=== PATIENT | female | born 1970 | race Caucasian/White ===

== ENCOUNTER → 2016-03-26 | Outpatient (CLI) | payer OTHER ==
--- NOTE | 2016-03-26 18:07 | CT ---
EXAMINATION TYPE: CT abdomen pelvis w con DATE OF EXAM: 03/26/2016 5:16 PM COMPARISON: NONE HISTORY: Upper Abdomen pain. CT DLP: 1727 mGycm Automated exposure control for dose reduction was used. TECHNIQUE: Helical acquisition of images was performed from the lung bases through the pelvis. CONTRAST: Performed with Oral Contrast and with IV Contrast, patient injected with 100 mL of Omnipaque 300. FINDINGS: Lung bases are clear of consolidation. There is no pleural effusion. Heart size is normal. Liver spleen pancreas appear normal. There are numerous calcified gallstones. Bile ducts are not dila geraldo. There is no adrenal mass. Kidneys show satisfactory contrast opacification. There is no hydronep hrosis. There is no retroperitoneal adenopathy. There is no ascites. I see no intestinal wall thicken ing. There are no dilated loops. Appendix appears normal. Bladder distends smoothly. There is no sign of a pelvic mass. I see no bony destructive process. There is spondylosis at L5-S1. There is mild re lative spinal stenosis at L5-S1 due to posterior calcified disc herniation. IMPRESSION: SPONDYLOSIS AT L5-S1. NUMEROUS GALLSTONES. NO DILATED DUCTS. NO SIGN OF ACUTE ABDOMEN AND PELVIS.
== END | disposition home or self-care (01) ==
LOC: RADCTMAIN 16:35
PROVIDERS: ATTEND Surgery
DX: R10.9 Unspecified abdominal pain (principal)
CPT/HCPCS: 74177; Q9967

== ENCOUNTER 2016-04-25 12:35 | Inpatient (IN) | payer OTHER ==
[2016-04-25] MEDS ORDERED: HYDROmorphone 1 MG/ML 1 ML SYRINGE IVP STA (15:00)
[2016-04-25] MEDS ORDERED: ONDANSETRON 4 MG/2 ML VIAL IVP STA (15:00)
[2016-04-25] MEDS ORDERED: SODIUM CHLORIDE 0.9% 1,000 ML IV STA (15:00)
--- NOTE | 2016-04-25 15:02 | ED ---
General Adult HPI <Iain Sawyer - Last Filed: 04/25/16 16:57> - General Source: patient, RN notes reviewed Mode of arrival: ambulatory Limitations: no limitations <Valentin Galarza - Last Filed: 04/25/16 17:04> - General Chief complaint: Abdominal Pain Stated complaint: RT SIDE ABDOMINAL PAIN Time Seen by Provider: 04/25/16 14:51 - History of Present Illness Initial comments: Patient [age]-year-old female who presents emergency room today with chief complaint of increased right upper quadrant pain. Does admit that she is scheduled to have surgery 1 month gallbladder removed. He states that pain increased yesterday. States worse after she eats. States she's not been able to eat anything today. Patient currently rates pain 10/10 located in the right upper quadrant describes it as sharp dull and achy. Does admit to symptoms of nausea. Denies any other complaints or associated symptoms. Patient denies any recent fever, chills, shortness of breath, chest pain, back pain, numbness or tingling, dysuria or hematuria, constipation or diarrhea, headaches or visual changes, or any other complaints. (Valentin Galarza) - Related Data Home Medications Medication Instructions Recorded Confirmed Lisinopril [Prinivil] 5 mg PO DAILY 04/25/16 04/25/16 Allergies Allergy/AdvReac Type Severity Reaction Status Date / Time methylprednisolone AdvReac Severe Erythema Verified 04/25/16 14:47 [From Medrol] Review of Systems ROS Other: All systems not noted in ROS Statement are negative. <Iain Sawyer - Last Filed: 04/25/16 16:57> ROS Other: All systems not noted in ROS Statement are negative. <Valentin Galarza - Last Filed: 04/25/16 17:04> ROS Statement: Those systems with pertinent positive or pertinent negative responses have been documented in the HPI. Past Medical History Past Medical History: Hypertension History of Any Multi-Drug Resistant Organisms: None Reported Past Surgical History: Tubal Ligation Past Psychological History: No Psychological Hx Reported Smoking Status: Never smoker Past Alcohol Use History: None Reported Past Drug Use History: None Reported <Valentin Galarza - Last Filed: 04/25/16 17:04> General Exam <Iain Sawyer - Last Filed: 04/25/16 16:57> Limitations: no limitations <Valentin Galarza - Last Filed: 04/25/16 17:04> - General Exam Comments Initial Comments: General: The patient is awake and alert, in no distress, and does not appear acutely ill. Eye: Pupils are equal, round and reactive to light, extra-ocular movements are intact. No nystagmus. There is normal conjunctiva bilaterally. No signs of icterus. Ears, nose, mouth and throat: There are moist mucous membranes and no oral lesions. Neck: The neck is supple, there is no tenderness or JVD. Cardiovascular: There is a regular rate and rhythm. No murmur, rub or gallop is appreciated. Respiratory: Lungs are clear to auscultation, respirations are non-labored, breath sounds are equal. No wheezes, stridor, rales, or rhonchi. Gastrointestinal: Normal appearance them. Normal bowel sounds. Soft on palpation. Patient does have tenderness in the right upper quadrant. Mild tenderness epigastric. No rebound tenderness. No guarding. No CVA tenderness. Musculoskeletal: Normal ROM, no tenderness. Strength 5/5. Sensation intact. Pulses equal bilaterally 2+. Neurological: A&O x 3. CN II-XII intact, There are no obvious motor or sensory deficits. Coordination appears grossly intact. Speech is normal. Skin: Skin is warm and dry and no rashes or lesions are noted. Psychiatric: Cooperative, appropriate mood & affect, normal judgment. (Valentin Galarza) Medical Decision Making - Lab Data Result diagrams: 04/25/16 15:45 04/25/16 15:45 <Iain Sawyer - Last Filed: 04/25/16 16:57> - Lab Data Result diagrams: 04/25/16 15:45 04/25/16 15:45 <Valentin Galarza - Last Filed: 04/25/16 17:04> - Medical Decision Making The patient complaining of arrival quadrant pain. Ultrasound performed today showed gallbladder thickened wall with the gallbladder filled with stones. Positive Hughes sign. And a large common bile duct. The radiologist's final impression is thickened gallbladder wall with cholelithiasis and positive sonographic Hughes sign. Correlate for acute cholecystitis. As read by Dr. Rolando zafar. Patient is scheduled for cholecystectomy 1 month from today she reports eating anything causes pain. Pain is listed at 10 out of 10. The case discussed with Dr. lee on-call for Dr. Dr. Miner. Under the circumstances the patient will be admitted to his service, nothing by mouth after midnight, started on antibiotics and control of pain. Dr. Sawyer (Iain Sawyer) - Lab Data Lab Results 04/25/16 04/25/16 04/25/16 Range/Units 15:38 15:45 15:45 WBC 9.8 (3.8-10.6) k/uL RBC 4.79 (3.80-5.40) m/uL Hgb 13.2 (11.4-16.0) gm/dL Hct 39.4 (34.0-46.0) % MCV 82.2 (80.0-100.0) fL MCH 27.5 (25.0-35.0) pg MCHC 33.4 (31.0-37.0) g/dL RDW 12.6 (11.5-15.5) % Plt Count 344 (150-450) k/uL Neutrophils % 59 % Lymphocytes % 31 % Monocytes % 4 % Eosinophils % 2 % Basophils % 2 % Neutrophils # 5.8 (1.3-7.7) k/uL Lymphocytes # 3.0 (1.0-4.8) k/uL Monocytes # 0.4 (0-1.0) k/uL Eosinophils # 0.2 (0-0.7) k/uL Basophils # 0.2 (0-0.2) k/uL Sodium 141 (137-145) mmol/L Potassium 3.9 (3.5-5.1) mmol/L Chloride 103 (98-107) mmol/L Carbon Dioxide 26 (22-30) mmol/L Anion Gap 12 mmol/L BUN 15 (7-17) mg/dL Creatinine 0.73 (0.52-1.04) mg/dL Est GFR (MDRD) Af Amer >60 (>60 ml/min/1.73 sqM) Est GFR (MDRD) Non-Af >60 (>60 ml/min/1.73 sqM) Glucose 86 (74-99) mg/dL Calcium 9.9 (8.4-10.2) mg/dL Total Bilirubin 0.8 (0.2-1.3) mg/dL AST 18 (14-36) U/L ALT 24 (9-52) U/L Alkaline Phosphatase 108 (38-126) U/L Total Protein 8.3 H (6.3-8.2) g/dL Albumin 4.4 (3.5-5.0) g/dL Amylase 45 (30-110) U/L Lipase 89 (23-300) U/L Urine Color Yellow Urine Appearance Cloudy H (Clear) Urine pH 5.0 (5.0-8.0) Ur Specific Volcano 1.018 (1.001-1.035) Urine Protein Trace H (Negative) Urine Glucose (UA) Negative (Negative) Urine Ketones Negative (Negative) Urine Blood Negative (Negative) Urine Nitrate Negative (Negative) Urine Bilirubin Negative (Negative) Urine Urobilinogen <2.0 (<2.0) mg/dL Ur Leukocyte Esterase Large H (Negative) Urine RBC 13 H (0-5) /hpf Urine WBC 19 H (0-5) /hpf Ur Squamous Epith Cells 21 H (0-4) /hpf Urine Bacteria Many H (None) /hpf Urine Mucus Occasional H (None) /hpf Disposition <Iain Sawyer - Last Filed: 04/25/16 16:57> Time of Disposition: 17:04 <Valentin Galarza - Last Filed: 04/25/16 17:04> Clinical Impression: Acute cholecystitis Disposition: ADMITTED IP TO THIS HOSP Condition: Good
[2016-04-25] MEDS: SODIUM CHLORIDE 0.9% 1,000 ML IV STA ×2 (15:52→20:03)
[2016-04-25 15:54] LABS: Appearance,Urine Cloudy (Clear); Bacteria,Urine Many /hpf; Bilirubin,Urine Negative (Negative); Glucose,Urine (UA) Negative (Negative); Ketones,Urine Negative (Negative); Leukocyte Esterase,Urine Large (Negative); Mucus,Urine Occasional /hpf; Nitrite,Urine Negative (Negative); Particle Count 27736; Protein,Urine Trace (Negative); RBC,Urine 13 /hpf (0-5); Specific Gravity,Urine 1.018 (1.001-1.035); Squamous Epithelial Cell,Urine 21 /hpf (0-4); UA Billing (MACRO vs. MICRO) MICRO; Urobilinogen,Urine <2.0 mg/dL (<2.0); WBC,Urine 19 /hpf (0-5)
[2016-04-25 16:02] LABS: Basophils # (A) 0.2 k/uL (0-0.2); Basophils % (A) 2 %; CH 27.2; CHCM 33.2; Eosinophils # (A) 0.2 k/uL (0-0.7); Eosinophils % (A) 2 %; HCT 39.4 % (34.0-46.0); HDW 2.45; HGB 13.2 gm/dL (11.4-16.0); Luc # (Auto) 0.26; Luc % (Auto) 3; Lymphocytes % (A) 31 %; MCH 27.5 pg (25.0-35.0); MCHC 33.4 g/dL (31.0-37.0); MCV 82.2 fL (80.0-100.0); Mean Platelet Volume 7.6; Monocytes # (A) 0.4 k/uL (0-1.0); Monocytes % (A) 4 %; Neutrophils # (A) 5.8 k/uL (1.3-7.7); Neutrophils % (A) 59 %; RBC 4.79 m/uL (3.80-5.40); RDW 12.6 % (11.5-15.5); WBC 9.8 k/uL (3.8-10.6); WBC (Perox) 9.49
[2016-04-25 16:20] LABS: ALT 24 U/L (9-52); AST 18 U/L (14-36); Alkaline Phosphatase 108 U/L (38-126); Amylase 45 U/L (30-110); Anion Gap 12 mmol/L; Blood Urea Nitrogen 15 mg/dL (7-17); Calcium 9.9 mg/dL (8.4-10.2); Carbon Dioxide 26 mmol/L (22-30); Chloride 103 mmol/L (98-107); Glucose 86 mg/dL (74-99); Non-African American GFR(MDRD) >60 (>60 ml/min/1.73 sqM); Potassium 3.9 mmol/L (3.5-5.1); Sodium 141 mmol/L (137-145); Total Bilirubin 0.8 mg/dL (0.2-1.3); Total Protein 8.3 g/dL (6.3-8.2)
--- NOTE | 2016-04-25 16:34 | US ---
EXAMINATION TYPE: US abdomen limited DATE OF EXAM: 04/25/2016 4:19 PM COMPARISON: NONE CLINICAL HISTORY: Pain. RUQ pain EXAM MEASUREMENTS: Liver Length: 16.5 cm Gallbladder Wall: 0.7 cm CBD: 0.7 cm Right Kidney: 10.9 x 4.7 x 5.3 cm TECHNOLOGIST IMPRESSION: Pancreas: visualized portions appear heterogeneous and echogenic Liver: appears wnl Gallbladder: filled with stones, thickened GB wall Evidence for sonographic Hughes's sign: yes CBD: Enlarged. Normal is less than 0.6 cm. Right Kidney: no evidence of hydronephrosis or mass IMPRESSION: 1. Thickened gallbladder wall with cholelithiasis and positive sonographic Hughes's sign. Correlate f or acute cholecystitis.
[2016-04-25] MEDS ORDERED: ONDANSETRON 4 MG/2 ML VIAL IVP PRN (17:01)
[2016-04-25] MEDS ORDERED: SODIUM CHLORIDE 0.9% 1,000 ML IV ONE (17:01)
[2016-04-25] MEDS ORDERED: NALOXONE 0.4 MG/ML 1 ML VIAL IV PRN (17:01)
[2016-04-25] MEDS ORDERED: ACETAMINOPHEN TAB 325 MG TAB PO PRN (17:01)
[2016-04-25] MEDS: HYDROmorphone 1 MG/ML 1 ML SYRINGE IV PRN (18:48)
[2016-04-25 19:39] VITALS: BMI 34.5
[2016-04-26] MEDS: HYDROmorphone 1 MG/ML 1 ML SYRINGE IV PRN ×4 (00:22→19:37)
[2016-04-26] MEDS: ONDANSETRON 4 MG/2 ML VIAL IVP PRN ×2 (02:49→07:08)
[2016-04-26 07:45] LABS: Basophils # (A) 0.1 k/uL (0-0.2); Basophils % (A) 1 %; CH 26.9; CHCM 31.3; Eosinophils # (A) 0.1 k/uL (0-0.7); Eosinophils % (A) 1 %; HCT 38.4 % (34.0-46.0); HDW 2.33; HGB 11.7 gm/dL (11.4-16.0); Luc # (Auto) 0.24; Luc % (Auto) 3; Lymphocytes # (A) 2.6 k/uL (1.0-4.8); Lymphocytes % (A) 34 %; MCH 26.3 pg (25.0-35.0); MCHC 30.5 g/dL (31.0-37.0); MCV 86.2 fL (80.0-100.0); Mean Platelet Volume 6.9; Monocytes # (A) 0.4 k/uL (0-1.0); Monocytes % (A) 5 %; Neutrophils # (A) 4.4 k/uL (1.3-7.7); Neutrophils % (A) 56 %; RBC 4.46 m/uL (3.80-5.40); RDW 12.6 % (11.5-15.5); WBC 7.9 k/uL (3.8-10.6); WBC (Perox) 8.54
--- NOTE | 2016-04-26 08:41 | P.GSHP ---
History of Present Illness H&P Date: 04/25/16 Chief Complaint: Right upper quadrant pain This is a 45-year-old female who presents to the emergency room with complaints of right upper quadrant pain. Patient underwent ultrasound and was found have evidence of cholelithiasis and thickened gallbladder wall. She is scheduled see Dr. Miner next month for laparoscopic cholecystectomy. - Constitutional Constitutional: Reports as per HPI Past Medical History Past Medical History: Hypertension History of Any Multi-Drug Resistant Organisms: None Reported Past Surgical History: Tubal Ligation Additional Past Surgical History / Comment(s): Darron 2009 Past Anesthesia/Blood Transfusion Reactions: Postoperative Nausea & Vomiting ( PONV) Additional Past Anesthesia/Blood Transfusion Reaction / Comment(s): "Hard time waking up from anesthesia" Past Psychological History: No Psychological Hx Reported Smoking Status: Never smoker Past Alcohol Use History: None Reported Past Drug Use History: None Reported - Past Family History Father Family Medical History: COPD Mother Additional Family Medical History / Comment(s): Cholecysitis. Medications and Allergies Home Medications Medication Instructions Recorded Confirmed Type Lisinopril [Prinivil] 5 mg PO DAILY 04/25/16 04/25/16 History Allergies Allergy/AdvReac Type Severity Reaction Status Date / Time methylprednisolone AdvReac Severe Erythema Verified 04/25/16 14:47 [From Medrol] Surgical - Exam Vital Signs Temp Pulse Resp BP Pulse Ox 98.4 F 80 18 139/77 98 04/25/16 13:20 04/25/16 13:20 04/25/16 13:20 04/25/16 13:20 04/25/16 13:20 - General well developed, no distress - Eyes PERRL - ENT normal pinna - Neck no masses - Respiratory normal expansion - Cardiovascular Rhythm: regular - Abdomen Mild right upper quadrant and epigastric tenderness Abdomen: soft Results - Labs 04/26/16 06:49 04/25/16 15:45 Abnormal Lab Results - Last 24 Hours (Table) 04/26/16 Range/Units 06:49 MCHC 30.5 L (31.0-37.0) g/dL - Imaging US - abdomen: report reviewed (Thickened gallbladder wall, cholelithiasis) Assessment and Plan Plan: Acute cholecystitis. We'll perform laparoscopic cholecystectomy.
[2016-04-26 09:17] LABS: ALT 25 U/L (9-52); AST 17 U/L (14-36); Alkaline Phosphatase 91 U/L (38-126); Anion Gap 9 mmol/L; Blood Urea Nitrogen 14 mg/dL (7-17); Carbon Dioxide 26 mmol/L (22-30); Chloride 105 mmol/L (98-107); Glucose 93 mg/dL (74-99); Non-African American GFR(MDRD) >60 (>60 ml/min/1.73 sqM); Potassium 4.3 mmol/L (3.5-5.1); Sodium 140 mmol/L (137-145); Total Bilirubin 0.7 mg/dL (0.2-1.3); Total Protein 7.2 g/dL (6.3-8.2)
[2016-04-26] MEDS ORDERED: ONDANSETRON 4 MG/2 ML VIAL IVP ONE ×2 (10:48→23:08)
[2016-04-26] MEDS ORDERED: HEPARIN SODIUM,PORCINE 5,000 UNIT/ML 1 ML VIAL SQ ONE (10:48)
[2016-04-26] MEDS ORDERED: SCOPOLAMINE 1.5MG/72HR PATCH TRANSDERM ONE ×2 (10:49→23:08)
[2016-04-26] MEDS ORDERED: MIDAZOLAM 2 MG/2 ML VIAL ONE (10:51)
[2016-04-26] MEDS ORDERED: GLYCOPYRROLATE 0.2 MG/ML 2 ML VIAL ONE (10:51)
[2016-04-26] MEDS ORDERED: PROPOFOL 10 MG/ML 20 ML VIAL IV ONE (10:51)
[2016-04-26] MEDS ORDERED: NEOSTIGMINE 1 MG/ML 10 ML VIAL ONE (10:51)
[2016-04-26] MEDS ORDERED: SUCCINYLCHOLINE CHLORIDE 100 MG/5 ML SYR IV ONE (10:51)
[2016-04-26] MEDS ORDERED: KETOROLAC 30 MG/ML 1 ML VIAL ONE (10:51)
[2016-04-26] MEDS ORDERED: fentaNYL (PF) 50 MCG/ML 2 ML AMP ONE (10:51)
[2016-04-26] MEDS ORDERED: ROCURONIUM BROMIDE 10 MG/ML 10 ML VIAL IV ONE (10:51)
[2016-04-26] MEDS ORDERED: LIDOCAINE 1% INJ 10MG/ML (20 ML MDV) ONE (10:51)
[2016-04-26] MEDS ORDERED: SODIUM CHLORIDE 0.9% 1,000 ML IV ONE (11:05)
[2016-04-26] MEDS ORDERED: SODIUM CHLORIDE 0.9% 50 ML with ceFAZolin 2,000 MG IV ONE ×2 (11:05)
[2016-04-26] MEDS ORDERED: LACTATED RINGERS 1,000 ML IV ONE ×2 (11:19→11:34)
[2016-04-26] MEDS ORDERED: BUPIVACAIN-EPI 0.25%-1:200,000 30 ML VIAL SQ ONE (11:27)
[2016-04-26] MEDS ORDERED: NALOXONE 0.4 MG/ML 1 ML VIAL IV PRN (11:34)
--- NOTE | 2016-04-26 11:34 | P.OP ---
Date of Procedure: 04/26/16 Preoperative Diagnosis: Cholecystitis Postoperative Diagnosis: Cholecystitis Procedure(s) Performed: Laparoscopic cholecystectomy Anesthesia: SEAN Surgeon: Yung Mckenzie Estimated Blood Loss (ml): 5 Pathology: other (Gallbladder) Condition: stable Disposition: PACU Operative Findings: Porcelain gallbladder Description of Procedure: The patient was placed on the operating table. The patient received a general endotracheal tube anesthesia. The patients abdomen was prepped and draped in the usual sterile fashion. Through an infraumbilical stab incision, the fascia of the anterior abdominal wall was grasped with a pair of Kochers and then the Veress needle was placed in the peritoneal cavity. Position of the Veress needle was confirmed with positive drop test. The abdomen was then insufflated. After adequate insufflation, the 10 mm trocar was placed in the peritoneal cavity. Following this the laparoscope was placed in the peritoneal cavity. The patient was placed in the head-up, right side up position and then a 5 mm trocar was placed in the right lateral and right subcostal position under direct visualization. A 8 mm trocar was placed in the epigastric position. The gallbladder was grasped in the fundus and infundibulum. Traction on the gallbladder was placed in the lateral and the cephalad positions. The gallbladder was quite inflamed and appeared to be porcelain. The triangle of Calot was visualized.. The cystic duct was bluntly dissected until the union of the cystic duct and common bile duct was seen. The cystic duct was then divided and sealed with the Harmonic scissors. A PDS Endoloop was then placed throughout the cystic duct stump. The cystic artery divided and sealed with the Harmonic scissors. The gallbladder was then removed from the liver bed using Harmonic scissors. The gallbladder was then extracted through the epigastric port site. Operative field was checked for any bleeding spots and Harmonic scissors was used to coagulate the liver bed. The abdomen was irrigated. The trocars were removed. The skin was closed using interrupted 3-0 Vicryl suture. Dermabond dressing were applied. The patient tolerated the procedure well.
[2016-04-26] MEDS ORDERED: HYDROmorphone 1 MG/ML 1 ML SYRINGE IVP ONE (11:56)
[2016-04-26] MEDS ORDERED: HYDROmorphone 2 MG/ML 1 ML SYRINGE IVP ONE (12:21)
[2016-04-26] MEDS: KETOROLAC 30 MG/ML 1 ML VIAL IVP SCH ×2 (15:08→17:39)
--- NOTE | 2016-04-26 22:06 | CONS ---
REASON FOR CONSULTATION: Recommendations regarding antihypertensive medications. Patient is a 45-year-old female, came in with right upper quadrant abdominal pain. Patient was diagnosed with cholecystitis, underwent cholecystectomy. I did not get a chance to review the operative report yet and patient apparently had cholelithiasis in the past. Patient is clinically doing well post surgery. Patient has not passed gas yet. Patient denied any fevers, chills. Patient denied any nausea, vomiting, abdominal pain. The patient's blood pressure has remained stable. ROS: All other systems were reviewed and were negative. PAST MEDICAL HISTORY: Hypertension, tubal ligation surgery in the past. SOCIAL HISTORY: Denied any smoking, alcohol or illicit drug abuse. FAMILY HISTORY: Father had COPD. Mother had cholecystitis in the past. PHYSICAL EXAMINATION: VITAL SIGNS: Temperature 98.5, pulse of 80, respiratory rate of 18, blood pressures 139/75, saturating at 98% on room air. GENERAL: The patient is alert and oriented x3, not in any acute distress. Well developed, well nourished. HEENT: Pupils are round and equally reacting to light. EOMI. No scleral icterus. No conjunctival pallor. Normocephalic, atraumatic. No pharyngeal erythema. No thyromegaly. CARDIOVASCULAR: S1 and S2 present. No murmurs, rubs, or gallops. PULMONARY: Chest is clear to auscultation, no wheezing or crackles. ABDOMEN: ( ). No rebound or rigidity. Bowel sounds are sluggish. MUSCULOSKELETAL: No joint swelling or deformity. EXTREMITIES: No cyanosis, clubbing, or pedal edema. NEUROLOGICAL: Gross neurological examination did not reveal any focal deficits. SKIN: No rashes. LABORATORY DATA: CBC, CMP essentially within normal limits. ASSESSMENT AND PLAN: 1. Hypertension. Will hold off antihypertensives. The patient is only on lisinopril. This will be held because of ( ) perioperative hypertension-related issues. 2. Status post cholecystectomy. Postoperative pain management as per [facility]. Deep venous thrombosis prophylaxis as per [facility]. Will watch for any complications post surgery. 3. Obesity. Counseling was provided regarding that. Thank you for letting me participate in this patient's care. Will continue to follow up with the patient on an as-needed basis. NEETU
[2016-04-26] MEDS ORDERED: MIDAZOLAM 2 MG/2 ML VIAL IV PRN (23:08)
[2016-04-26] MEDS ORDERED: DEXAMETHASONE SOD PHOSPHATE 10 MG/ML 1 ML VIAL IV ONE (23:08)
[2016-04-26] MEDS ORDERED: LACTATED RINGERS 1,000 ML IV SCH (23:08)
[2016-04-26] MEDS ORDERED: HYDROmorphone 1 MG/ML 1 ML SYRINGE IVP PRN (23:08)
[2016-04-26] MEDS ORDERED: LIDOCAINE 1% 20 ML VIAL (10MG/ML) FOR IV START INTRADERMA PRN (23:08)
[2016-04-27] MEDS: KETOROLAC 30 MG/ML 1 ML VIAL IVP SCH ×3 (00:44→11:03)
[2016-04-27 01:26] VITALS: TEMP 98.1
[2016-04-27] MEDS: HYDROmorphone 1 MG/ML 1 ML SYRINGE IV PRN (02:56)
[2016-04-27 07:02] VITALS: BP 126/61; PULSE 53; RESP 16
[2016-04-27] MEDS: HYDROcodone/APAP 5-325MG 1 EACH TAB PO PRN ×2 (07:08→12:28)
[2016-04-27 07:10] LABS: Basophils % (A) 1 %; CH 26.9; CHCM 31.8; Eosinophils # (A) 0.1 k/uL (0-0.7); Eosinophils % (A) 2 %; HCT 34.4 % (34.0-46.0); HDW 2.35; Luc # (Auto) 0.15; Luc % (Auto) 2; Lymphocytes # (A) 2.9 k/uL (1.0-4.8); Lymphocytes % (A) 38 %; MCH 27.2 pg (25.0-35.0); MCV 84.9 fL (80.0-100.0); Mean Platelet Volume 6.7; Monocytes # (A) 0.3 k/uL (0-1.0); Monocytes % (A) 4 %; Neutrophils # (A) 4.1 k/uL (1.3-7.7); Neutrophils % (A) 54 %; RBC 4.05 m/uL (3.80-5.40); RDW 12.8 % (11.5-15.5); WBC 7.6 k/uL (3.8-10.6); WBC (Perox) 8.12
[2016-04-27 07:27] LABS: ALT 24 U/L (9-52); AST 19 U/L (14-36); Alkaline Phosphatase 74 U/L (38-126); Anion Gap 8 mmol/L; Blood Urea Nitrogen 13 mg/dL (7-17); Calcium 8.9 mg/dL (8.4-10.2); Carbon Dioxide 26 mmol/L (22-30); Chloride 104 mmol/L (98-107); Glucose 88 mg/dL (74-99); Non-African American GFR(MDRD) >60 (>60 ml/min/1.73 sqM); Potassium 4.1 mmol/L (3.5-5.1); Sodium 138 mmol/L (137-145); Total Bilirubin 0.7 mg/dL (0.2-1.3); Total Protein 6.6 g/dL (6.3-8.2)
--- NOTE | 2016-04-27 10:25 | P.DS ---
Providers Date of admission: 04/25/16 18:02 Expected date of discharge: 04/27/16 Attending physician: uYng Mckenzie Consults: 04/26/16 11:34 Consult Physician Routine Consulting Provider: Anushka Gomez Consult Reason/Comments: Medical management Do you want consulting provider notified?: Yes Primary care physician: Lisseth Osuna Hospital Course: This a 45-year-old female who was admitted to the hospital with complaints of right upper quadrant pain. Patient's workup found have evidence of acute cholecystitis. Patient went laparoscopic cholecystectomy. Please see hospital chart for details. Procedures: Laparoscopic cholecystectomy Patient Condition at Discharge: Good Plan - Discharge Summary New Discharge Prescriptions: HYDROcodone/APAP 7.5-325MG [[place] 7.5] 1 each PO Q4H PRN #60 tab PRN Reason: Pain Discharge Medication List Lisinopril [Prinivil] 5 mg PO DAILY 04/25/16 [History] HYDROcodone/APAP 7.5-325MG [[place] 7.5] 1 each PO Q4H PRN #60 tab 04/27/16 [Rx] Follow up Appointment(s)/Referral(s): Lisseth Osuna MD [Primary Care Provider] - 1-2 days Yung Mckenzie MD [STAFF PHYSICIAN] - 1 Week Discharge Disposition: HOME SELF-CARE
--- NOTE | 2016-04-27 16:25 | PN ---
Patient is admitted for cholecystectomy. Patient post surgery her blood pressure remained very well at 120 systolic in spite of not being on any medications. Recommended to check the blood pressure twice a day, take it to her primary care doctor and at this point of time, I am recommending her to completely hold off on lisinopril until she sees her primary doctor and patient has asymptomatic bacteria which does not warrant any antibiotics. Discharge medication reconciliation was reviewed. REVIEW OF SYSTEMS: CARDIOVASCULAR: No chest pain, no orthopnea, no PND, no palpitations. PULMONARY: Denied any shortness of breath. No cough or hemoptysis. GASTROINTESTINAL: No diarrhea, nausea or vomiting. No abdominal pain. Normoactive bowel sounds. NEUROLOGIC: No headaches, no weakness, no numbness. Medications were reviewed. PHYSICAL EXAMINATION: VITAL SIGNS: Temperature 98.1, pulse of 63, respiratory rate of 16, blood pressure is 126/61, saturating at 94% on room air. GENERAL: The patient is alert and oriented x3, not in any acute distress. Well developed, well nourished. HEENT: Pupils are round and equally reacting to light. EOMI. No scleral icterus. No conjunctival pallor. Normocephalic, atraumatic. No pharyngeal erythema. No thyromegaly. CARDIOVASCULAR: S1 and S2 present. No murmurs, rubs, or gallops. PULMONARY: Chest is clear to auscultation, no wheezing or crackles. ABDOMEN: Soft, nontender, nondistended, normoactive bowel sounds. No palpable organomegaly. MUSCULOSKELETAL: No joint swelling or deformity. EXTREMITIES: No cyanosis, clubbing, or pedal edema. NEUROLOGICAL: Gross neurological examination did not reveal any focal deficits. SKIN: No rashes. FINAL DIAGNOSES: 1. Hypertension. 2. Asymptomatic bacteria. 3. Status post cholecystectomy. 4. Obesity. PLAN: As mentioned above in the interval history.
== END 2016-04-27 15:17 | disposition home or self-care (01) | DRG 419 ==
LOC: EC 12:35 → 3SUR 18:02
PROVIDERS: ADMIT Surgery; ATTEND Surgery
PROC: 0FT44ZZ Resection of Gallbladder, Percutaneous Endoscopic Approach (ICD-10-PCS; principal; 2016-04-26 10:45)
DX: K80.00 Calculus of gallbladder with acute cholecystitis without obstruction (principal); I10 Essential (primary) hypertension; E66.9 Obesity, unspecified; K82.8 Other specified diseases of gallbladder; Z68.34 Body mass index [BMI] 34.0-34.9, adult; Z79.899 Other long term (current) drug therapy; Z88.8 Allergy status to other drugs, medicaments and biological substances
CPT/HCPCS: 36415; 76705; 80053; 81001; 81025; 82150; 83690; 85025; 88304; 96361; 96374; 96375; 99285

== ENCOUNTER 2016-05-16 12:00 | Day surgery (SDC) | payer OTHER ==
[~2016-05-16 12:00] MED LIST: LACTATED RINGERS 1,000 ML IV SCH; LIDOCAINE 1% 20 ML VIAL (10MG/ML) FOR IV START INTRADERMA PRN
[2016-05-16 12:29] VITALS: RESP 16; TEMP 99
--- NOTE | 2016-05-16 13:28 | P.GSHP ---
History of Present Illness H&P Date: 05/16/16 Chief Complaint: Epigastric pain This a 45-year-old female who's had chronic issues with epigastric pain. Patient was originally thought to have a ventral hernia. Her recent CAT scan shows no evidence of ventral hernia. However she does have tenderness in the epigastric area. She presents today for EGD. - Constitutional Constitutional: Reports as per HPI Past Medical History Past Medical History: Hypertension History of Any Multi-Drug Resistant Organisms: None Reported Past Surgical History: Cholecystectomy, Tubal Ligation Additional Past Surgical History / Comment(s): Darron 2009 Past Anesthesia/Blood Transfusion Reactions: Postoperative Nausea & Vomiting ( PONV) Additional Past Anesthesia/Blood Transfusion Reaction / Comment(s): "Hard time waking up from anesthesia" Past Psychological History: No Psychological Hx Reported Smoking Status: Never smoker Past Alcohol Use History: None Reported Past Drug Use History: None Reported - Past Family History Father Family Medical History: COPD Mother Additional Family Medical History / Comment(s): Cholecysitis. Medications and Allergies Home Medications Medication Instructions Recorded Confirmed Type Lisinopril-Hctz 10-12.5 mg 1 tab PO DAILY 05/16/16 05/16/16 History [Zestoretic 10-12.5] Allergies Allergy/AdvReac Type Severity Reaction Status Date / Time methylprednisolone AdvReac Severe Erythema Verified 05/16/16 12:29 [From Medrol] Surgical - Exam Vital Signs Temp Pulse Resp BP Pulse Ox 99 F 94 16 146/85 98 05/16/16 12:27 05/16/16 12:27 05/16/16 12:27 05/16/16 12:27 05/16/16 12:27 - General well developed, no distress - Eyes PERRL - ENT normal pinna - Neck no masses - Respiratory normal expansion - Cardiovascular Rhythm: regular - Abdomen Mild epigastric tenderness Abdomen: soft Assessment and Plan Plan: Epigastric pain. We'll perform EGD.
[2016-05-16] MEDS ORDERED: PROPOFOL 10 MG/ML 20 ML VIAL IV ONE (14:41)
[2016-05-16] MEDS ORDERED: LIDOCAINE 1% INJ 10MG/ML (20 ML MDV) ONE (14:41)
[2016-05-16] MEDS ORDERED: HYDROmorphone 1 MG/ML 1 ML SYRINGE IVP ONE (15:40)
[2016-05-16 17:23] VITALS: BP 141/91; PULSE 72
--- NOTE | 2016-08-08 12:58 | P.OP ---
Date of Procedure: 05/16/16 Preoperative Diagnosis: Gastritis Postoperative Diagnosis: Gastritis Procedure(s) Performed: EGD Implants: Anesthesia: MAC Surgeon: Yung Mckenzie Pathology: other (Antrum) Condition: stable Disposition: PACU Indications for Procedure: Operative Findings: Description of Procedure: Patient's placed on the endoscopy table in the lateral position. She received IV sedation. The gastroscope some placed oropharynx passed in the esophagus and into the stomach. Scope was then placed through the pylorus. The first and second portion duodenum appeared normal. Scope summer back the antrum this was mildly inflamed. A biopsies was performed. The scope was then retroflexed remainder stomach appeared normal. There is no significant hiatal hernia. The distal esophagus was normal. The proximal esophagus appeared normal. Scope was withdrawn for patient.
== END 2016-05-16 17:55 | disposition home or self-care (01) ==
LOC: ORWHC2ENDO 12:00
PROVIDERS: ATTEND Surgery
DX: K29.50 Unspecified chronic gastritis without bleeding (principal); I10 Essential (primary) hypertension; Z79.899 Other long term (current) drug therapy; Z91.09 Other allergy status, other than to drugs and biological substances; R10.13 Epigastric pain
CPT/HCPCS: 81025; 88305; 88342; 43239; J2001; J1170; J2704

== ENCOUNTER → 2016-05-20 | Outpatient (CLI) | payer OTHER ==
--- NOTE | 2016-05-21 09:02 | CT ---
EXAMINATION TYPE: CT abdomen pelvis w con DATE OF EXAM: 05/20/2016 7:56 PM COMPARISON: Previous exam one March 2016 HISTORY: Upper Abdomen pain and occasional bulging marked by BB CT DLP: 1699.5 mGycm Automated exposure control for dose reduction was used. TECHNIQUE: Helical acquisition of images was performed from the lung bases through the pelvis. CONTRAST: Performed with Oral Contrast and with IV Contrast, patient injected with 100 mL of Omnipaque 300. FINDINGS: LUNG BASES: No significant abnormality is appreciated. LIVER/GB: Patient is post cholecystectomy. Liver shows a stable appearance PANCREAS: No significant abnormality is seen. SPLEEN: No significant abnormality is seen. ADRENALS: No significant abnormality is seen. KIDNEYS: Subcentimeter cortical cyst lower pole left kidney. RETROPERITONEAL ADENOPATHY: None visualized REPRODUCTIVE ORGANS: Similar to prior exam, there may be ovarian cysts. URINARY BLADDER: No significant abnormality is seen. PELVIC ADENOPATHY: None visualized. OSSEOUS STRUCTURES: Stable BOWEL: No significant abnormality is seen. OTHER: The area underlying the BB in the upper abdomen anteriorly does not show any underlying abnorm ality. There is a small umbilical hernia which contains fat. IMPRESSION: NO SIGNIFICANT INTERVAL CHANGE TO ACCOUNT FOR PATIENT'S SYMPTOMS. ADDITIONAL FINDINGS ABOVE. POST CHO LECYSTECTOMY.
== END | disposition home or self-care (01) ==
LOC: RADCTMAIN 18:56
PROVIDERS: ATTEND Surgery
DX: N28.1 Cyst of kidney, acquired (principal); Z90.49 Acquired absence of other specified parts of digestive tract
CPT/HCPCS: 74177; Q9967

== ENCOUNTER → 2021-10-25 | Outpatient (CLI) | payer MEDICAID ==
--- NOTE | 2021-10-26 08:59 | CT ---
EXAMINATION TYPE: CT abdomen pelvis w con CT DLP: 2097.3 mGycm, Automated exposure control for dose reduction was used. DATE OF EXAM: 10/25/2021 5:55 PM COMPARISON: CT abdomen pelvis most recent from 05/20/2016. CLINICAL INDICATION:Female, 51 years old with history of R10.84 GENERALIZED ABDOMINAL PAIN; hernia, p ain TECHNIQUE: Standard CT of the abdomen and pelvis following the administration of 100 cc of Isovue 3 00 IV contrast material. Coronal and sagittal reformats were performed. FINDINGS: LOWER CHEST: The lung bases are clear. Mild prominence to the heart. No pericardial effusion. ABDOMEN LIVER: Unremarkable GALLBLADDER AND BILE DUCTS: The gallbladder is surgically absent. No biliary duct dilatation. PANCREAS: Unremarkable. SPLEEN: Unremarkable. ADRENAL GLANDS: Right adrenal gland is unremarkable. Left adrenal gland nodule measuring up to 1.6 cm which is stable from prior examination in 2017 and considered benign. KIDNEYS AND URETERS: No evidence of hydronephrosis or renal calculus. The kidneys enhance symmetrical ly. Subcentimeter left inferior pole likely cysts. PELVIS BLADDER: Unremarkable REPRODUCTIVE: Unremarkable. ABDOMEN & PELVIS STOMACH AND BOWEL: Stomach and duodenum are unremarkable. No focal wall thickening or surrounding inf lammatory changes. The appendix is within normal limits. No evidence of bowel obstruction. PERITONEUM: No evidence of pneumoperitoneum or free fluid. VASCULATURE: No evidence of aortic aneurysm. MUSCULOSKELETAL: No acute osseous abnormalities. Degenerative disc disease with disc space narrowing, endplate sclerosis, vacuum disc disease, and anterior posterior osteophytosis at L5-S1. There is a l east mild spinal canal stenosis at L5-S1 due to posterior disc osteophyte complex. LYMPH NODES: No gross evidence for lymphadenopathy. SOFT TISSUE/ABDOMINAL WALL: No evidence of inguinal hernia. Stable tiny fat filled umbilical hernia. IMPRESSION: 1. No acute abdominal/pelvic process. 2. Stable tiny fat filled umbilical hernia. 3. Stable left adrenal gland nodule from 2017 and considered benign.
== END | disposition home or self-care (01) ==
LOC: RADCTMAIN 17:21
PROVIDERS: ATTEND Surgery
DX: R10.84 Generalized abdominal pain (principal); K42.9 Umbilical hernia without obstruction or gangrene
CPT/HCPCS: 74177; Q9967

== ENCOUNTER 2021-12-05 09:41 | Day surgery (SDC) | payer MEDICAID ==
[2021-12-04 08:30] VITALS: BMI 32.3
[~2021-12-05 09:41] MED LIST changes: +HEPARIN SODIUM,PORCINE/PF 5,000 UNIT/0.5 ML SYRINGE SQ PRN; +HYDROmorphone 0.5 MG/0.5 ML SYRINGE IVP PRN; -LIDOCAINE 1% 20 ML VIAL (10MG/ML) FOR IV START INTRADERMA PRN; +ONDANSETRON 4 MG/2 ML VIAL IVP ONE
[2021-12-05] MEDS ORDERED: LACTATED RINGERS 1,000 ML IV ONE ×2 (10:29→14:03)
[2021-12-05] MEDS ORDERED: ONDANSETRON 4 MG/2 ML VIAL IVP ONE (10:29)
[2021-12-05] MEDS ORDERED: MIDAZOLAM 2 MG/2 ML VIAL IVP ONE (10:44)
[2021-12-05] MEDS ORDERED: fentaNYL (PF) 50 MCG/ML 2 ML AMP IVP ONE (10:44)
[2021-12-05] MEDS ORDERED: LABETALOL SYRINGE 5 MG/ML IVP ONE (11:12)
[2021-12-05] MEDS ORDERED: MIDAZOLAM 2 MG/2 ML VIAL ONE (11:21)
[2021-12-05] MEDS ORDERED: GLYCOPYRROLATE 0.2 MG/ML 2 ML VIAL ONE (11:21)
[2021-12-05] MEDS ORDERED: ROPIVACAINE 5 MG/ML 30 ML VIAL ONE (11:21)
[2021-12-05] MEDS ORDERED: SUCCINYLCHOLINE CHLORIDE 200 MG/10 ML VIAL IV ONE (11:21)
[2021-12-05] MEDS ORDERED: NEOSTIGMINE 1 MG/ML 10 ML VIAL ONE (11:21)
[2021-12-05] MEDS ORDERED: METOPROLOL TARTRATE 5 MG/5 ML VIAL IVP ONE (11:21)
[2021-12-05] MEDS ORDERED: LIDOCAINE 2% INJ 20 MG/ML (2 ML VIAL) ONE (11:21)
[2021-12-05] MEDS ORDERED: ROCURONIUM 10 MG/ML (5 ML VIAL) IV ONE (11:21)
[2021-12-05] MEDS ORDERED: SODIUM CHLORIDE 0.9% (PF) 10 ML VIAL ONE (11:21)
[2021-12-05] MEDS ORDERED: KETOROLAC 15 MG/ML 1 ML VIAL ONE (11:21)
[2021-12-05] MEDS ORDERED: fentaNYL (PF) 50 MCG/ML 2 ML AMP ONE (11:21)
[2021-12-05] MEDS ORDERED: PROPOFOL 10 MG/ML 20 ML VIAL IV ONE (11:21)
--- NOTE | 2021-12-05 11:43 | P.ANPRN ---
Procedure Note - Anesthesia - Nerve Block Performed Bilateral Transversus Abdominis Single Time Out Performed: Yes (1043) Date of Procedure: 12/05/21 Procedure Start Time: 10:44 Procedure Stop Time: 10:51 Location of Patient: PreOp Indication: Acute Post-Operative Pain, Requested by Surgeon Specifically requested for management of pain by : Denae Hassan Sedation Type: Sedate with meaningful contact maintained Preparation: Sterile Prep Position: Supine Catheter: None Needle Types: Pajunk Needle Gauge: 21 Ultrasound used to visualize needle placement: Yes Ultrasound used to observe medication spread: Yes Injectate: 0.5% Ropivacaine (see comment for volume) (15cc + 10cc nacl pf each side) Blood Aspirated: No Pain Paresthesia on Injection Noted: No Resistance on Injection: Normal Image Stored and Saved: Yes Events: Uneventful and Well Tolerated
[2021-12-05] MEDS ORDERED: LIDOCAINE 1%-EPI 1:100,000 20 ML VIAL SQ ONE ×2 (11:48)
--- NOTE | 2021-12-05 12:34 | P.OP ---
Date of Procedure: 12/05/21 Preoperative Diagnosis: Umbilical Hernia Postoperative Diagnosis: Umbilical Hernia Procedure(s) Performed: Robotic Umbilical hernia repair with mesh Anesthesia: SEAN Surgeon: Denae Hassan Pathology: other (Abdominal wall biopsy) Condition: stable Disposition: same day Indications for Procedure: 51-year-old female presented to the surgery clinic with complaints of abdominal pain around her umbilicus. Further workup revealed umbilical hernia. Secondary to this, plan is for umbilical hernia repair with mesh. Risks, benefits and alternatives were provided to the patient. She did provide consent prior to attending the operating suite. Operative Findings: 2 x 2 centimeter umbilical hernia Abdominal wall lesion Description of Procedure: The patient was brought to the operating room and placed in supine position. Gen. anesthesia with endotracheal intubation was performed as per anesthesia team. The right arm was tucked against the body and the footboard was applied. She was prepped and draped in regular sterile fashion. A 5 mm skin incision was made along the left midaxillary line at [place] point and the abdomen was entered under direct visualization using a Visiport. Pneumoperitoneum was achieved. The umbilical hernia was clearly visualized. It was noted to contain preperitoneal fat. An additional 8 mm trocar was placed in the left lower abdomen and a 12 mm trocar was placed in left mid abdomen. The initial 5 mm trocar was upsized to an 8 mm trocar. The robot was undocked. The robotic instruments were inserted through the trochars. The hernia defect contained preperitoneal fat and was measured at approximately 2 x 2 centimeters. The fat was reduced using gentle traction and countertraction method. The falciform ligament was divided using monopolar scissors close to the anterior abdominal wall to create a landing zone for the mesh. A PLUMgrid system circular mesh, 11cm, he was rolled and introduced into the abdominal cavity via the 12 mm trocar. The hernia defect was then closed primarily with running sutures using 10V lock by taking one similar bite on the fashion either side of the defect. A Jeff-Samanta device was inserted through the middle of the hernia defect and the stay suture on the mesh was grasped to elevate the mesh against the anterior abdominal wall. The mesh was circumferentially sutured to the peritoneum of the anterior abdominal wall using 20V lock without any folds or kinks. The robot was then undocked. All trocar sites were examined. No evidence of bleeding. All sutures removed from the abdomen. An additional small lesion was noted in the right lower quadrant abdominal wall. A small biopsy was taken. The 12 mm trocar site was then closed using 2 trans-fascial sutures of 0 Vicryl which were placed using a Jeff-Samanta device. The pneumoperitoneum was evacuated and all the skin incisions were closed using 4-0 Monocryl followed by Dermabond skin glue. The sponge, instrument and needle count were correct 2. Abdominal binder was applied. The patient was activated and taken to postanesthesia care unit in stable condition.
[2021-12-05 12:51] VITALS: TEMP 97.2
[2021-12-05] MEDS ORDERED: ACETAMINOPHEN IV (For NPO) 1,000 MG/100 ML VIAL IVPB ONE (13:02)
[2021-12-05 14:11] VITALS: RESP 18
[2021-12-05] MEDS ORDERED: HYDROcodone/APAP 5-325MG 1 EACH TAB ONE (14:27)
[2021-12-05] MEDS ORDERED: HYDROcodone/APAP 5-325MG 1 EACH TAB PO ONE (14:29)
[2021-12-05 15:10] VITALS: BP 138/69; PULSE 102
== END 2021-12-05 15:27 | disposition home or self-care (01) ==
LOC: OR 09:41
PROVIDERS: ATTEND Surgery
DX: K42.9 Umbilical hernia without obstruction or gangrene (principal); G89.18 Other acute postprocedural pain; J45.909 Unspecified asthma, uncomplicated; I10 Essential (primary) hypertension; Z86.79 Personal history of other diseases of the circulatory system; Z90.49 Acquired absence of other specified parts of digestive tract; Z98.51 Tubal ligation status; Z83.3 Family history of diabetes mellitus
CPT/HCPCS: 64488; 88307; 49652; C1781; J2250; J0330; J2710; J0690; J2405; J3010; J2795; J0131; J1885; J2704; J1170; J1644; J2001

== ENCOUNTER → 2021-12-09 | Outpatient (CLI) | payer MEDICAID ==
--- NOTE | 2021-12-09 15:49 | US ---
EXAMINATION TYPE: US thyroid st tissue head/neck DATE OF EXAM: 12/09/2021 COMPARISON: NONE CLINICAL HISTORY: R22.1 LOCALIZED SWELLING, MASS AND LUMP, NECK. Patient state right neck palp x 3 we eks. Patient states toward the end of the day her voice gets hoarse. Area of concern scanned at palpable of lower right neck and right thyroid lobe was visualized. Left thyroid lobe scanned for comparison. Right lobe= 4.6 x 2.2 x 2.5 cm and left lobe = 3.9 x 1.9 x 2.5 cm. IMPRESSION: Diffusely heterogenous mildly prominent thyroid gland with the right lobe marginally larger than the left. Correlation with thyroid function tests recommended.
== END | disposition home or self-care (01) ==
LOC: RADUSWWP 15:23
PROVIDERS: ATTEND Internal Medicine
DX: R22.1 Localized swelling, mass and lump, neck (principal)
CPT/HCPCS: 76536

== ENCOUNTER → 2021-12-27 | Outpatient (CLI) | payer MEDICAID | END | disposition home or self-care (01) | LOC: LABWHC1 13:27 | PROVIDERS: ATTEND Otolaryngology | DX: E07.9 Disorder of thyroid, unspecified (principal) | CPT/HCPCS: 36415; 84439; 84443; 84481; 86376; 86800 ==

== ENCOUNTER → 2022-02-11 | Outpatient (CLI) | payer MEDICAID | END | disposition home or self-care (01) | LOC: LABWHC1 12:31 | PROVIDERS: ATTEND Internal Medicine Endocrinology, Diabetes & Metabolism | DX: E05.00 Thyrotoxicosis with diffuse goiter without thyrotoxic crisis or storm (principal) | CPT/HCPCS: 36415; 84439; 84443; 84481 ==

== ENCOUNTER → 2022-05-14 | Outpatient (CLI) | payer MEDICAID ==
[2022-05-14 18:08] LABS: HCT 36.5 % (37.2-46.3); HGB 11.1 g/dL (12.0-15.0); MCH 25.2 pg (27.0-32.0); MCHC 30.4 g/dL (32.0-37.0); MCV 82.8 fL (80.0-97.0); Mean Platelet Volume 10.4 fL (9.5-12.2); NRBC Per 100 WBC 0 /100 WBCS (0.0-0.0); Platelet Count 310 X 10*3/uL (140-440); RBC 4.41 X 10*6/uL (4.10-5.20); RDW 15.3 % (11.5-14.5); WBC 5.97 X 10*3/uL (4.50-10.00)
[2022-05-14 18:29] LABS: ALT 13 U/L (8-44); AST 17 U/L (13-35)
== END | disposition home or self-care (01) ==
LOC: LABWHC1 12:56
PROVIDERS: ATTEND Internal Medicine
DX: E05.90 Thyrotoxicosis, unspecified without thyrotoxic crisis or storm (principal)
CPT/HCPCS: 36415; 84439; 84443; 84445; 84450; 84460; 84481; 85027; 86376

== ENCOUNTER → 2022-07-14 | Outpatient (CLI) | payer MEDICAID | END | disposition home or self-care (01) | LOC: LABWHC1 07:33 | PROVIDERS: ATTEND Surgery | DX: E05.00 Thyrotoxicosis with diffuse goiter without thyrotoxic crisis or storm (principal) | CPT/HCPCS: 36415; 84439; 84443; 84481 ==

== ENCOUNTER 2022-07-21 16:00 | Emergency (ER) | payer MEDICAID ==
[2022-07-21 16:09] VITALS: TEMP 98.4
[2022-07-21] MEDS ORDERED: ACETAMINOPHEN TAB 500 MG TAB PO STA (16:35)
[2022-07-21] MEDS ORDERED: LABETALOL 5 MG/ML VIAL MDV IVP STA (16:35)
--- NOTE | 2022-07-21 16:41 | ED ---
General Adult HPI - General Chief complaint: Recheck/Abnormal Lab/Rx Stated complaint: HIGH BP Time Seen by Provider: 07/21/22 16:27 Source: patient, RN notes reviewed, old records reviewed Mode of arrival: ambulatory Limitations: no limitations - History of Present Illness Initial comments: 52-year-old well-appearing female, alert and oriented 4 presents to the emergency room with complaints of a vicelike headache for the past 4 days. Patient states that she's been checking her blood pressure and it has been elevated despite taking her medications which include lisinopril 10 mg and metoprolol 50 mg daily. She had a thyroidectomy for Graves' disease on at [facility] with Dr. Lugo. States she was discharged home and her calcium levels were borderline. She is experiencing some tingling in her fingers. She denies any chest pain or difficulty breathing. No fevers. No vision changes. No nausea or vomiting. Patient states that she does have a history of headaches however this one does not cause her any photophobia like her normal headache, it is viselike around her head and diffuse. Patient has a history of hypertension, headaches, grave's disease. Surgical history of thyroidectomy and cholecystectomy -: days(s) (4) Location: head Radiation: non-radiation Severity scale (1-10): 3 Quality: other (vicelike) - Related Data Home Medications Medication Instructions Recorded Confirmed Semaglutide [Ozempic] 1 mg INJ TU 12/04/21 12/05/21 lisinopriL [Zestril] 10 mg PO DAILY 12/04/21 12/05/21 Previous Rx's Medication Instructions Recorded HYDROcodone/APAP 5-325MG [[place] 1 tab PO Q6HR PRN 3 Days #12 tab 12/05/21 5-325] Ibuprofen [Motrin] 800 mg PO Q8H PRN #24 tab 12/05/21 Metoprolol Tartrate [Lopressor] 50 mg PO BID 30 Days #60 tab 03/30/22 Allergies Allergy/AdvReac Type Severity Reaction Status Date / Time amoxicillin [From Augmentin] Allergy Rash/Hives Verified 07/21/22 16:09 clavulanic acid Allergy Rash/Hives Verified 07/21/22 16:09 [From Augmentin] methylprednisolone AdvReac Severe Erythema Verified 07/21/22 16:09 [From Medrol] Review of Systems ROS Statement: Those systems with pertinent positive or pertinent negative responses have been documented in the HPI. ROS Other: All systems not noted in ROS Statement are negative. Past Medical History Past Medical History: Hypertension, Thyroid Disorder History of Any Multi-Drug Resistant Organisms: None Reported Past Surgical History: Cholecystectomy, Hernia Repair, Tubal Ligation Additional Past Surgical History / Comment(s): Novasure 2010, thyroidectomy Past Anesthesia/Blood Transfusion Reactions: Postoperative Nausea & Vomiting (PONV) Additional Past Anesthesia/Blood Transfusion Reaction / Comment(s): "Hard time waking up from anesthesia" Past Psychological History: No Psychological Hx Reported Smoking Status: Never smoker Past Alcohol Use History: None Reported Past Drug Use History: None Reported - Past Family History Father Family Medical History: COPD Mother Additional Family Medical History / Comment(s): Cholecysitis. General Exam Limitations: no limitations General appearance: alert, in no apparent distress Head exam: Present: atraumatic Eye exam: Present: normal appearance. Absent: scleral icterus, conjunctival injection, periorbital swelling, periorbital tenderness ENT exam: Present: mucous membranes moist Neck exam: Present: tenderness, full ROM, other (Surgical thyroidectomy scar with Steri-Strips dry with no surrounding erythema or drainage.). Absent: meningismus Respiratory exam: Present: normal lung sounds bilaterally. Absent: respiratory distress, accessory muscle use Cardiovascular Exam: Present: regular rate Extremities exam: Present: full ROM, normal capillary refill. Absent: tendern ess, pedal edema Neurological exam: Present: alert, oriented X3 Psychiatric exam: Present: normal affect, normal mood Skin exam: Present: warm, dry, normal color. Absent: cyanosis, diaphoretic, petechiae, pallor Course Vital Signs 07/21/22 07/21/22 07/21/22 16:07 16:55 17:00 Temperature 98.4 F Pulse Rate 75 72 67 Respiratory 18 16 17 Rate Blood Pressure 213/111 202/100 199/92 O2 Sat by Pulse 98 100 99 Oximetry 07/21/22 07/21/22 17:10 17:30 Temperature Pulse Rate 70 68 Respiratory 15 15 Rate Blood Pressure 188/95 186/95 O2 Sat by Pulse 99 99 Oximetry EKG Findings - EKG Results: EKG: interpreted by ERMD, sinus rhythm (EKG interpreted by me shows sinus rhythm with a ventricular rate of 69, IN interval 0.163, QRS 0.98, QTc 0.439, no significant change compared to old 03-30-22) Medical Decision Making - Medical Decision Making Was pt. sent in by a medical professional or institution (HAZEL Walker, BIOCHEMICAL ENGINEER, urgent care, hospital, or fpc...) When possible be specific @ -No Did you speak to anyone other than the patient for history (EMS, parent, family, police, friend...)? What history was obtained from this source @ -No Did you review nursing and triage notes (agree or disagree)? Why? @ -I reviewed and agree with nursing and triage notes Were old charts reviewed (outside hosp., previous admission, EMS record, old EKG, old radiological studies, urgent care reports/EKG's, fpc records)? Report findings @ -No old charts were reviewed Differential Diagnosis (chest pain, altered mental status, abdominal pain women, abdominal pain men, vaginal bleeding, weakness, fever, dyspnea, syncope, headache, dizziness, GI bleed, back pain, seizure, CVA, palpatations, mental health, musculoskeletal)? @ -Differential Headache: Migraine, tension, cluster, carbon monoxide, central venous thrombosis, pension karma temporal arteritis, acute closure glaucoma, intercranial hemorrhage, mastoiditis, sinusitis, head injury, this is not meant to be an all-inclusive list. EKG interpreted by me (3pts min.). @ -yes EKG interpreted by me shows sinus rhythm with ventricular rate of 69, IN interval 0.163, QRS 0.98, QTc 0.439, left axis deviation, no significant change compared to old 03-30-22 X-rays interpreted by me (1pt min.). @ yes, Chest x-ray interpreted by me shows no focal consolidation. Trachea mid line. No evidence of free air. CT interpreted by me (1pt min.). @ -None done U/S interpreted by me (1pt. min.). @ -None done What testing was considered but not performed or refused? (CT, X-rays, U/S, lab s)? Why? @ -None What meds were considered but not given or refused? Why? @ -None Did you discuss the management of the patient with other professionals (professionals i.e. HAZEL Walker, BIOCHEMICAL ENGINEER, lab, RT, psych nurse, manager social media, manager rn case, teacher, chief growth officer, nurse case management)? Give summary @ -No Was smoking cessation discussed for >3mins.? @ -No Was critical care preformed (if so, how long)? @ -No Were there social determinants of health that impacted care today? How? (Homelessness, low income, unemployed, alcoholism, drug addiction, transportation, low edu. Level, literacy, decrease access to med. care, nursing home, rehab)? @ -No Was there de-escalation of care discussed even if they declined (Discuss DNR or withdrawal of care, Hospice)? DNR status @ -No What co-morbidities impacted this encounter? (DM, HTN, Smoking, COPD, CAD, Cancer, CVA, ARF, Chemo, Hep., AIDS, mental health diagnosis, sleep apnea, morbid obesity)? @ -Hypertension, Graves' disease, headaches Was patient admitted / discharged? Hospital course, mention meds given and route, prescriptions, significant lab abnormalities, going to OR and other pertinent info. @ -Discharged 52-year-old well-appearing female, alert and oriented 4 presents to the emergency room with complaints of a vicelike headache for the past 4 days. Patient states that she's been checking her blood pressure and it has been elevated despite taking her medications which include lisinopril 10 mg and metoprolol 50 mg daily. She had a thyroidectomy for Graves' disease on at [facility] with Dr. Lugo. States she was discharged home and her calcium levels were borderline. She is experiencing some tingling in her f ingers. She denies any chest pain or difficulty breathing. No fevers. No vision changes. No nausea or vomiting. Patient states that she does have a history of headaches however this one does not cause her any photophobia like her normal headache, it is viselike around her head and diffuse. Patient has a history of hypertension, headaches, grave's disease. Surgical history of thyroidectomy and cholecystectomy On physical exam patient has no focal neurological deficits. Blood pressure is elevated. Chest x-ray interpreted by me shows no focal consolidation. Trachea midline. No evidence of free air. Radiologist interpretation no acute cardiopulmonary disease or process. EKG interpreted by me shows sinus rhythm with ventricular rate of 69, IN interval 0.163, QRS 0.98, QTc 0.439, left axis deviation, no significant change compared to old 03-30-22 CBC and electrolytes are unremarkable. Calcium level 8.7. Troponin negative at 0.012. She was given labetalol with improvement from 213/111 to 170/99. Headache improved. Patient is agreeable to being discharged home. I explained that I would prefer her to take lisinopril twice a day for blood pressure if it is high at home however she can take metoprolol twice a day instead. I did encourage her to talk to her primary care doctor this week. She states she does have follow-up appointments. Directed to return to the emergency room if any new concerning symptoms. She is agreeable to this plan of care. She states she has had oxycodone at home for her postsurgical pain. She was given 1 dose of [place] prior to discharge with family. Case discussed with Dr. Tucker. Undiagnosed new problem with uncertain prognosis? @ -No Drug Therapy requiring intensive monitoring for toxicity (Heparin, Nitro, Insulin, Cardizem)? @ -No Were any procedures done? @ -No Diagnosis/symptom? @ -Hypertensive urgency, headache Acute, or Chronic, or Acute on Chronic? @ -Acute Uncomplicated (without systemic symptoms) or Complicated (systemic symptoms)? @ -Uncomplicated Side effects of treatment? @ -No Exacerbation, Progression, or Severe Exacerbation? @ -No Poses a threat to life or bodily function? How? (Chest pain, [place], [place], pneumonia, PE, COPD, DKA, ARF, appy, cholecystitis, CVA, Diverticulitis, Homicidal, Suicidal, threat to staff... and all critical care pts) @ -No - Lab Data Result diagrams: 07/21/22 16:40 07/21/22 16:40 Lab Results 07/21/22 07/21/22 07/21/22 Range/Units 16:40 16:40 16:40 WBC 8.0 (3.8-10.6) k/uL RBC 4.95 (3.80-5.40) m/uL Hgb 13.2 (11.4-16.0) gm/dL Hct 39.9 (34.0-46.0) % MCV 80.5 (80.0-100.0) fL MCH 26.7 (25.0-35.0) pg MCHC 33.1 (31.0-37.0) g/dL RDW 13.0 (11.5-15.5) % Plt Count 331 (150-450) k/uL MPV 7.2 Neutrophils % 56 % Lymphocytes % 35 % Monocytes % 4 % Eosinophils % 3 % Basophils % 1 % Neutrophils # 4.5 (1.3-7.7) k/uL Lymphocytes # 2.8 (1.0-4.8) k/uL Monocytes # 0.3 (0-1.0) k/uL Eosinophils # 0.2 (0-0.7) k/uL Basophils # 0.1 (0-0.2) k/uL Sodium 142 (137-145) mmol/L Potassium 4.6 (3.5-5.1) mmol/L Chloride 105 (98-107) mmol/L Carbon Dioxide 28 (22-30) mmol/L Anion Gap 9 mmol/L BUN 16 (7-17) mg/dL Creatinine 0.71 (0.52-1.04) mg/dL Est GFR (CKD-EPI)AfAm >90 (>60 ml/min/1.73 sqM) Est GFR (CKD-EPI)NonAf >90 (>60 ml/min/1.73 sqM) Glucose 89 (74-99) mg/dL Calcium 8.7 (8.4-10.2) mg/dL Total Bilirubin 0.6 (0.2-1.3) mg/dL AST 31 (14-36) U/L ALT 17 (4-34) U/L Alkaline Phosphatase 143 H (38-126) U/L Troponin I <0.012 (0.000-0.034) ng/mL Total Protein 8.1 (6.3-8.2) g/dL Albumin 4.1 (3.5-5.0) g/dL Disposition Clinical Impression: Hypertensive urgency Disposition: HOME SELF-CARE Condition: Good Instructions (If sedation given, give patient instructions): Hypertension (ED) Additional Instructions: Increase your lisinopril to twice a day OR your metoprolol to twice a day IF your blood pressure remains high. Contact your primary care doctor this week to advise him of your elevated blood pressures. Return to the emergency room with any new or concerning symptoms including increased headaches, chest pain or difficulty in breathing. Is patient prescribed a controlled substance at d/c from ED?: No Referrals: Thao,Lisseth, MD [Primary Care Provider] - 1-2 days Time of Disposition: 18:09
[2022-07-21 17:04] LABS: Basophils # (A) 0.1 k/uL (0-0.2); Basophils % (A) 1 %; Eosinophils # (A) 0.2 k/uL (0-0.7); Eosinophils % (A) 3 %; HCT 39.9 % (34.0-46.0); HGB 13.2 gm/dL (11.4-16.0); Lymphocytes # (A) 2.8 k/uL (1.0-4.8); Lymphocytes % (A) 35 %; MCH 26.7 pg (25.0-35.0); MCHC 33.1 g/dL (31.0-37.0); MCV 80.5 fL (80.0-100.0); Mean Platelet Volume 7.2; Monocytes # (A) 0.3 k/uL (0-1.0); Monocytes % (A) 4 %; Neutrophils # (A) 4.5 k/uL (1.3-7.7); Neutrophils % (A) 56 %; Platelet Count 331 k/uL (150-450); RBC 4.95 m/uL (3.80-5.40)
[2022-07-21 17:20] LABS: ALT 17 U/L (4-34); African American GFR (CKD) >90 (>60 ml/min/1.73 sqM); Albumin 4.1 g/dL (3.5-5.0); Anion Gap 9 mmol/L; Blood Urea Nitrogen 16 mg/dL (7-17); Calcium 8.7 mg/dL (8.4-10.2); Carbon Dioxide 28 mmol/L (22-30); Chloride 105 mmol/L (98-107); Glucose 89 mg/dL (74-99); Non-African American GFR(CKD) >90 (>60 ml/min/1.73 sqM); Sodium 142 mmol/L (137-145); Total Bilirubin 0.6 mg/dL (0.2-1.3); Total Protein 8.1 g/dL (6.3-8.2)
[2022-07-21 17:22] LABS: AST 31 U/L (14-36); Alkaline Phosphatase 143 U/L (38-126); Potassium 4.6 mmol/L (3.5-5.1)
--- NOTE | 2022-07-21 17:25 | XR ---
EXAMINATION TYPE: XR chest 2V DATE OF EXAM: 07/21/2022 5:06 PM COMPARISON: None TECHNIQUE: XR chest 2V Frontal and lateral views of the chest. CLINICAL INDICATION:Female, 52 years old with history of post op thyroidectomy; FINDINGS: Lungs/Pleura: There is no evidence of pleural effusion, focal consolidation, or pneumothorax. Pulmonary vascularity: Unremarkable. Heart/mediastinum: Cardiomediastinal silhouette is unremarkable. Musculoskeletal: No acute osseous pathology. Other findings: None IMPRESSION: No acute cardiopulmonary disease/process.
[2022-07-21 17:44] VITALS: BP 186/95; PULSE 68; RESP 15
[2022-07-21] MEDS ORDERED: HYDROcodone/APAP 5-325MG 1 EACH TAB PO STA (18:06)
[2022-07-22 07:34] LABS: T4, Free (Free Thyroxine) 1.86 ng/dL (0.78-2.19)
== END 2022-07-21 18:23 | disposition home or self-care (01) ==
LOC: EC 16:00
DX: I16.0 Hypertensive urgency (principal); I10 Essential (primary) hypertension; Z88.0 Allergy status to penicillin; Z88.8 Allergy status to other drugs, medicaments and biological substances; Z88.1 Allergy status to other antibiotic agents; Z90.49 Acquired absence of other specified parts of digestive tract; Z79.899 Other long term (current) drug therapy
CPT/HCPCS: 36415; 71046; 80053; 84439; 84443; 84484; 85025; 93005; 96374; 99284

== ENCOUNTER → 2022-07-31 | Outpatient (CLI) | payer MEDICAID ==
[2022-08-01 02:58] LABS: T4, Free (Free Thyroxine) 1.65 ng/dL (0.80-1.80)
== END | disposition home or self-care (01) ==
LOC: LABWHC1 11:50
PROVIDERS: ATTEND Surgery
DX: E89.0 Postprocedural hypothyroidism (principal)
CPT/HCPCS: 36415; 84439; 84443; 84481

== ENCOUNTER → 2023-02-25 | Outpatient (CLI) | payer MEDICAID ==
--- NOTE | 2023-02-25 13:11 | XR ---
EXAMINATION TYPE: XR hand complete RT DATE OF EXAM: 02/25/2023 COMPARISON: 01/22/2012 HISTORY: Fall, pain TECHNIQUE: 3 view right hand FINDINGS: No acute fracture or dislocation is evident. Soft tissues appear normal. Ring is present on the ring finger. Follow up exams can be performed 7-10 days from acute trauma for continued pain. IMPRESSION: 1. No acute osseous abnormality right hand.
== END | disposition home or self-care (01) ==
LOC: RADXRMAIN 12:45
PROVIDERS: ATTEND Internal Medicine
DX: S60.921A Unspecified superficial injury of right hand, initial encounter (principal); W19.XXXA Unspecified fall, initial encounter